=== PATIENT | female | born 1980 ===

== ENCOUNTER 2016-12-09 18:37 | Emergency (ER) | payer MEDICAID, OTHER ==
[~2016-12-09] VITALS: Ht 170.2 cm; Wt 97.7 kg
[~2016-12-09 18:37] MED LIST: GABA-502 PO; INSU100V7 SUBQ; OMEP20TA24 PO; OXYC5CAP4 PO; PROM25TA14 PO
[2016-12-09 18:54] VITALS: BP 163/97; PULSE 105; RESP 16; O2SAT 99
--- NOTE | 2016-12-09 19:30 | ED.REPORT ---
HPI-Rash / Abscess Date of Service Dec 09, 2016 ED Provider: Lucius Cummins PA-C Eren is a 36 female history of diabetes presenting with a chief complaint of a bump on her left buttock. Patient reports it began slowly over the last 4 days. She has noticed redness, swelling, heat region. She attempted to pop the lesion yesterday, and it was productive of pus. Patient denies fever, shaking chills, abdominal pain, vomiting, feeling ill. Nursing Notes Stated Complaint: BUMP ON LEFT BUTTOCK Chief Complaint: Skin Rash/Abscess Nursing Notes Reviewed: Yes Allergies: Coded Allergies: morphine (Verified Allergy, Severe, Hives, 10/19/15) acetaminophen (Verified Allergy, Intermediate, Hives, 10/19/15) propoxyphene napsylate (Verified Allergy, Intermediate, Hives, 10/19/15) Scheduled Cephalexin (Cephalexin) 500 Mg Tablet 500 MG PO QID Gabapentin (Gabapentin) 300 Mg Capsule 300 MG PO TID Insulin Glargine (Lantus U100 Insulin Vial) 100 Unit/Ml Vial 30 UNIT SUBQ AM Insulin Glargine (Lantus U100 Insulin Vial) 100 Unit/Ml Vial 60 UNIT SUBQ QPM- INSULIN Sulfamethoxazole/Trimeth 800-160 mg (Bactrim DS) 1 Each Tablet 1 TABLET PO BID Scheduled PRN Omeprazole Magnesium (Prilosec Otc) 20 Mg Tablet.dr 20 MG PO DAILY PRN PRN For Indigestion Promethazine (Promethazine) 25 Mg Tablet 25 MG PO Q6 PRN PRN HEADACHE oxyCODONE (oxyCODONE) 5 Mg Capsule 5 MG PO Q4H PRN PRN For Pain General Time Seen by MD: 19:13 Chief Complaint Abscess Past Medical History Past Medical History Reports: Diabetes mellitus, Hypertension Past Surgical History Reports: Appendectomy Reports: Back/neck surgery Smoking History Former Smoker Social History Alcohol Use: Denies alcohol use Drug Use: Denies drug use Ambulatory Status Independent Review of Systems Review of Systems Note: Negative unless stated otherwise in history of present illness Physical Exam General: Well appearing, well developed, well nourished, no acute distress. Head: Atraumatic, normocephalic. Eyes: No scleral icterus or injection. No discharge. Vision grossly intact. ENT: Voice clear, hearing grossly intact. Respiratory: No respiratory distress, no increased work of breathing. Speaks in complete sentences. Skin: 3 cm area of induration surrounding a 1 cm area of crust on the left buttock with associated tenderness. Negative discharge or fluctuance. Examination with ultrasound does not reveal a significant area of fluid to be drained. Otherwise Warm and dry. Examination performed with a food writer. Neurological: Grossly nonfocal. Psychological: alert and oriented. Speech appropriate, linear and logical. Behavior appropriate. Initial Vital Signs Vital Signs (First) Date Time Temp Pulse Resp B/P Pulse Ox O2 Delivery O2 Flow Rate FiO2 12/09/16 18:54 36.8 105 16 163/97 99 Room Air Mild tachycardia, elevated blood pressure Re-Eval/Medical Decision Med Decision/Clinical Course 36-year-old female with a history of diabetes presenting with chief complaint of a lump on her left buttock. Reports a history of similar several years ago that resulted in a surgical incision and drainage. Lesion has been worsening over the last 4 days, patient "popped it" yesterday, producing pus. She is concerned that this is causing it to "tunnel." Denies fever, shaking chills, abdominal pain, vomiting, feeling ill. Physical examination reveals a small area of induration around the area of central crusting, negative discharge, with associated tenderness. I appreciate no fluctuance or pointing abscess. Examination with ultrasound reveals a very small and poorly organized pocket of fluid. Patient has mild tachycardia at 104 bpm. Discussed findings with the patient. Advised that I suspect she has drained the abscess already and I am unsure that further drainage will be beneficial. Her preference is not to incise the lesion. We decided to proceed with oral antibiotics and warm compresses. Advised follow-up with primary care or return to emergency department if not significant improved in 4-5 days. Provide emergency return precautions. I discussed this case with Dr. Grimes who verbalizes agreement. Patient verbalizes understanding of and consent to the plan. At discharge is noted tachycardia of approximately 104 bpm is persistent. Vitals otherwise normal exception of some mild hypertension. I discussed this finding with Dr. Grimes. we agree she is unlikely to be septic or hypovolemic. We believe she is stable to be discharged home. Discharge & Departure Impression: Primary Impression: Abscess Disposition: Home Discharge Condition All VS Reviewed: Yes Condition: Stable Patient Instructions: Abscess (ED) Additional Instructions: Evaluation for a skin bump in the emergency department includes interview, physical examination and examination with ultrasound, all of which suggest that this is a small abscess that has drained. We have discussed performing an incision and drainage and have decided against it. Instead we will proceed with antibiotic treatment. I will prescribe Keflex 500 mg taken 4 times a day for 10 days. Additionally I will prescribe Bactrim DS to be taken twice a day for 10 days. Please be sure to take every dose. The pain is best treated with 600 mg of ibuprofen (Advil, Motrin) every 6 hours , or 1000 mg of acetaminophen (Tylenol) every 6 hours. These drugs can be taken at the same time for more severe pain. I also suggest applying a warm compress to the affected area several times a day to encourage blood flow and drainage. I provided a referral to a primary care provider. Please contact them or return to emergency department if this is not significantly improved in about 4- 5 days. Return to the emergency department for any new or worsening symptoms including increasing pain, feeling ill, fever. Referrals: DANIELA WILLS (PCP) EDSupervising Provider for APC: Hao Grimes MD copies to: DANIELA WILLS Seth PA-C Dec 09, 2016 19:30
[2016-12-09] MEDS ORDERED: SULF1TAB7 PO ×2 (19:47→20:09)
[2016-12-09] MEDS ORDERED: CEPH500T PO ×2 (19:47→20:09)
[2016-12-09 20:15] VITALS: BP 142/95; PULSE 103; RESP 18; O2SAT 99
== END 2016-12-09 20:15 | disposition home or self-care (01) ==
LOC: SED 18:37
DX: L02.31 Cutaneous abscess of buttock (principal); E11.9 Type 2 diabetes mellitus without complications; I10 Essential (primary) hypertension; Z87.891 Personal history of nicotine dependence; Z88.5 Allergy status to narcotic agent; Z88.6 Allergy status to analgesic agent; Z88.8 Allergy status to other drugs, medicaments and biological substances; Z79.4 Long term (current) use of insulin
CPT/HCPCS: 96372; 99283; J1885